=== PATIENT | female | born 2000 | race African-American/Black ===

== ENCOUNTER 2021-11-13 19:11 | Emergency (ER) | payer MEDICAID ==
[~2021-11-13] VITALS: Ht 160 cm; Wt 62.2 kg
[2021-11-13 19:30] VITALS: BP 97/56
[2021-11-13 21:13] LABS: CLARITY URINE CLEAR (CLEAR); COLOR URINE YELLOW (YELLOW); KETONES URINE TRACE (NEGATIVE); LEUKOCYTE ESTERASE URINE 1+ (NEGATIVE); NITRITE URINE NEGATIVE (NEGATIVE); OCCULT BLOOD URINE NEGATIVE (NEGATIVE); PH URINE 6.5 (4.5-8.0); PROTEIN URINE NEGATIVE (NEGATIVE); SPECIFIC GRAVITY URINE 1.027 (1.005-1.030)
[2021-11-13 21:22] LABS: BASOPHILS % 0.4 % (0.0-2.0); EOSINOPHILS % 1.8 % (0.0-5.0); HEMOGLOBIN. 8.6 g/dL (12.0-16.0); LYMPHOCYTES % 23.8 % (20.0-50.0); MEAN CORPUSCULAR HEMOGLOBIN 19.9 pg (28.0-32.0); MEAN CORPUSCULAR VOLUME 62.6 fL (81.0-99.0); MEAN PLATELET VOLUME 8.8 fl (7.4-10.4); MONOCYTES % 5.6 % (2.0-8.0); NEUTROPHILS % 68.4 % (40.0-76.0); PLATELET 404 x1000/uL (130-400); RED BLOOD CELL COUNT 4.31 mill/uL (4.2-5.4); RED CELL DISTRIBUTION WIDTH 22.3 % (11.6-14.6)
[2021-11-13 21:32] LABS: CHLORIDE 106 mEq/L (98-107)
[2021-11-13 21:34] LABS: HCG SCREEN POSITIVE
[2021-11-13 22:08] LABS: PLATELET ESTIMATE NORMAL
[2021-11-13] MEDS ORDERED: NITR-87 MT (22:56)
[2021-11-13] MEDS ORDERED: PYR200 MT (22:56)
== END 2021-11-13 23:21 | disposition home or self-care (01) ==
LOC: ER 19:33
DX: O23.41 Unspecified infection of urinary tract in pregnancy, first trimester (principal); N39.0 Urinary tract infection, site not specified; O99.011 Anemia complicating pregnancy, first trimester; O26.891 Other specified pregnancy related conditions, first trimester; K58.9 Irritable bowel syndrome, unspecified; Z3A.01 Less than 8 weeks gestation of pregnancy
CPT/HCPCS: 36415; 76801; 80053; 81003; 81025; 84702; 84703; 85025; 99284